=== PATIENT | male | born 1960 | race Caucasian/White ===

== ENCOUNTER 2016-10-19 11:12 | Emergency (ER) | payer OTHER ==
--- NOTE | 2016-10-19 11:21 | Emergency Department Record ---
History of Present Illness - General Chief complaint: Lower Extremity Pain Stated complaint: RIGHT LEG CALF SWELLING/TENDER Time Seen by Provider: 10/19/16 11:13 Source: Patient Mode of Arrival: Ambulatory Limitations: No limitations - History of Present Illness Initial comments: 55 yo male presents with right calf swelling for about one week. He had a right total knee performed by Dr Velasquez about one month ago. No other current symptoms. No fever, chills, redness. His incision has healed without issues. No cough, shortness or breath or chest pain. He takes a full 325mg Aspirin daily. MD Complaint: Extremity pain, Extremity swelling -: Week(s) (1) Location: Right History of Same: No Radiation: Distal Quality: Aching Consistency: Constant Improves with: Elevation Worsens with: Walking, Weight bearing Associated Symptoms: Denies other symptoms - Related Data Home Medications Medication Instructions Recorded Confirmed Last Taken Nabumetone 500 mg PO DAILY tab 09/07/16 10/19/16 Unknown Aspirin 325 mg PO DAILY 10/19/16 10/19/16 Unknown Allergies Allergy/AdvReac Type Severity Reaction Status Date / Time Penicillins Allergy Intermediate RASH Unverified 09/07/16 16:06 Review of Systems Constitutional: Denies: Chills, Fever, Malaise, Weakness Eyes: Denies: Eye discharge ENT: Denies: Congestion, Throat pain Respiratory: Denies: Cough, Dyspnea, Hemoptysis, Stridor, Wheezes Cardiovascular: Denies: Arrhythmia, Chest pain, Palpitations, Syncope Endocrine: Denies: Fatigue Gastrointestinal: Denies: Abdominal pain, Diarrhea, Nausea, Vomiting Genitourinary: Denies: Dysuria, Frequency, Hematuria Musculoskeletal: Reports: As per HPI, Myalgia, Other (calf swelling). Denies: Arthralgia, Back pain, Joint swelling Skin: Denies: Bruising, Change in color, Pruritus Neurological: Denies: Headache Psychiatric: Denies: Anxiety Hematological/Lymphatic: Denies: Blood Clots, Easy bleeding, Easy bruising, Swollen glands Past Medical History - SOCIAL HISTORY Smoking Status: Former smoker - NEURO Hx Neuro Disorders: No - Hx Genitourinary Disorders: No - ENDOCRINE Hx Endocrine Disorders: No - MUSCULOSKELETAL Hx Musculoskeletal Disorders: No - PSYCH Hx Psych Problems: No - HEMATOLOGY/ONCOLOGY Hx Hematology/Oncology Disorders: No Physical Exam - General General Appearance: Alert, Oriented x3, Cooperative, No acute distress Limitations: No limitations - Head Head exam: Normal inspection - Eye Eye exam: Normal appearance. negative: Conjunctival injection - ENT ENT exam: Normal exam Ear exam: Normal external inspection Nasal Exam: Normal inspection Mouth exam: Normal external inspection Teeth exam: Normal inspection - Neck Neck exam: Normal inspection, Full ROM. negative: Tenderness - Respiratory Respiratory exam: Normal lung sounds bilaterally. negative: Respiratory distress - Cardiovascular Cardiovascular Exam: Regular rate, Normal rhythm, Normal heart sounds - Rectal Rectal exam: Deferred - exam: Deferred - Extremities Extremities exam: Calf tenderness, Full ROM, Normal capillary refill, Pedal edema, Other (mild right sided calf swelling, no abnormal warmth or redness). negative: Normal inspection - Back Back exam: Reports: Normal inspection - Neurological Neurological exam: Alert, Normal gait, Oriented X3 - Psychiatric Psychiatric exam: Normal affect, Normal mood - Skin Skin exam: Dry, Intact, Normal color, Warm, Other (Well healed incision). negative: Erythema Course - Reevaluation(s) Reevaluation #1: US of the RLE ordered The patient is otherwise doing well without symptoms 10/19/16 11:20 Reevaluation #2: The prelim US of the RLE was reviewed. NO DVT. 10/19/16 12:07 Reevaluation #3: Final read was negative for DVT 10/19/16 12:17 Disposition Disposition: Discharge Clinical Impression: Leg edema, right Disposition: Home, Self-Care Condition: (1) Good Instructions: Leg Edema (ED) Additional Instructions: follow up with Dr Velasquez and Justa Lou PA return if red, warm, fever or any new concerns Forms: Patient Portal Access Time of Disposition: 12:16
--- NOTE | 2016-10-20 08:32 | US VENOUS DOPPLER REPORT ---
EXAM: ULTRASOUND OF THE DEEP VENOUS SYSTEM OF THE RIGHT LOWER EXTREMITY HISTORY: RIGHT CALF PAIN. TECHNIQUE: Sonographic evaluation of the deep venous system of the right lower extremity was performed with the addition of Doppler, compression and augmentation. FINDINGS: There is normal compression, augmentation, and blood flow identified from the right common femoral vein to the popliteal vein. The posterior tibial , peroneal, and anterior tibial veins are patent. IMPRESSION: NO SONOGRAPHIC EVIDENCE OF A DEEP VEIN THROMBOSIS IN THE RIGHT LOWER EXTREMITY. JOB NUMBER: [id number] MTDD
== END 2016-10-19 12:31 | disposition home or self-care (01) ==
LOC: ER 11:12
DX: R60.0 Localized edema (principal); Z96.651 Presence of right artificial knee joint
CPT/HCPCS: 99283

== ENCOUNTER 2017-03-06 17:00 | Observation (INO) | payer OTHER ==
--- NOTE | 2017-03-06 17:23 | Emergency Department Record ---
History of Present Illness - General Chief Complaint: Cough Stated Complaint: CHEST CONGESTION,LOWER BACK SPASM,DIZZINESS Time Seen by Provider: 03/06/17 17:17 Source: Patient Mode of Arrival: Ambulatory Limitations: No limitations - History of Present Illness Initial Comments: 56 yo male presents with cold like symptoms since Sunday. His symptoms started with sore throat and drainage. The symptoms moved to his lungs. He has productive cough with wheezing. He tried to go back to work today. He noted that he was feeling dizzy with standing. No fever. He does have some muscle aches. No chest pain. No diarrhea or vomiting. MD Complaint: Cough, Other Onset/Timin -: Days(s) Severity scale (1-10): 7 Consistency: Constant Associated Symptoms: Cough - Related Data Previous Rx's Medication Instructions Recorded Insulin Detemir [Levemir Flextouch] 22 unit SQ QHS 30 Days syringe 03/08/17 Metformin HCl 1,000 mg PO BID 30 Days #60 tab 03/08/17 Allergies Allergy/AdvReac Type Severity Reaction Status Date / Time Penicillins Allergy Intermediate RASH Unverified 11/08/16 09:36 Travel Screening - Travel/Exposure Within Last 30 Days Have you traveled within the last 30 days?: No Review of Systems Constitutional: Reports: Malaise. Denies: Chills, Fever Eyes: Denies: Eye discharge ENT: Reports: Throat pain. Denies: Congestion, Dental pain, Epistaxis Respiratory: Reports: Cough, Wheezes. Denies: Dyspnea, Hemoptysis, Stridor Cardiovascular: Denies: Chest pain, Palpitations, Syncope Endocrine: Denies: Fatigue Gastrointestinal: Denies: Abdominal pain, Diarrhea, Nausea, Vomiting Genitourinary: Denies: Dysuria, Frequency Musculoskeletal: Reports: Myalgia. Denies: Arthralgia, Back pain Skin: Denies: Bruising, Change in color, Rash Neurological: Denies: Headache, Numbness, Vertigo, Weakness Psychiatric: Denies: Anxiety Hematological/Lymphatic: Denies: Blood Clots, Easy bleeding, Easy bruising, Swollen glands Past Medical History - SOCIAL HISTORY Smoking Status: Former smoker Alcohol Use: None Drug Use: None - RESPIRATORY Hx Respiratory Disorders: No - CARDIOVASCULAR Hx Cardio Disorders: No - NEURO Hx Neuro Disorders: No - GI Hx GI Disorders: No - Hx Genitourinary Disorders: No - ENDOCRINE Hx Endocrine Disorders: No Hx Diabetes: Yes (type 2) - MUSCULOSKELETAL Hx Musculoskeletal Disorders: No Hx Arthritis: Yes - PSYCH Hx Psych Problems: No - HEMATOLOGY/ONCOLOGY Hx Hematology/Oncology Disorders: No Family Medical History Any Significant Family History?: No Physical Exam - General General Appearance: Alert, Oriented x3, Cooperative, No acute distress Limitations: No limitations - Head Head exam: Normal inspection - Eye Eye exam: Normal appearance, PERRL. negative: Conjunctival injection, Periorbital swelling - ENT ENT exam: Normal exam, Mucous membranes moist, Normal orophraynx, TM's normal bilaterally. negative: Mucous membranes dry Ear exam: Normal external inspection Nasal Exam: Normal inspection. negative: Discharge Mouth exam: Normal external inspection Throat exam: Tonsillar erythema. negative: Tonsillomegaly, Tonsillar exudate, R peritonsillar mass, L peritonsillar mass - Neck Neck exam: Normal inspection, Full ROM. negative: Tenderness - Respiratory Respiratory exam: Rhonchi, Wheezes. negative: Normal lung sounds bilaterally, Accessory muscle use, Decreased breath sounds, Prolonged expiratory, Respiratory distress - Cardiovascular Cardiovascular Exam: Regular rate, Normal rhythm, Normal heart sounds Peripheral Pulses: 2+: Radial (R), Radial (L) - GI/Abdominal GI/Abdominal exam: Soft. negative: Tenderness - Extremities Extremities exam: Normal inspection, Full ROM, Normal capillary refill. negative: Pedal edema, Tenderness - Back Back exam: Reports: Normal inspection, Full ROM. Denies: Muscle spasm, Rash noted, Tenderness - Neurological Neurological exam: Alert, Normal gait, Oriented X3 - Psychiatric Psychiatric exam: Normal affect, Normal mood - Skin Skin exam: Dry, Intact, Normal color, Warm Course Vital Signs 03/06/17 17:06 Temperature 97.3 F L Pulse Rate 105 H Respiratory 18 Rate Blood Pressure 110/67 Pulse Ox 96 - Reevaluation(s) Reevaluation #1: 03/06/17 18:10 The CBC was reviewed No acute changes The CMP was reviewed The patient has acute changes in his renal function with a CR of 2.5 and a BUN of 26 His K was 5.2 03/06/17 18:16 The CXR was reviewed and consistent with COPD 03/06/17 18:29 EKG 18:17 NSR rate of 95, intervals normal,axis is normal, NS inferior lateral changes similar to prior. Medical Decision Making - Lab Data Result diagrams: 03/06/17 17:35 03/08/17 08:43 Disposition Disposition: Admit Clinical Impression: COPD exacerbation, Acute renal insufficiency, Hyperkalemia, Dehydration Disposition: Still a Patient at [facility] Decision to Admit: Admit from ER Decision to Admit Date: 03/06/17 Decision to Admit Time: 18:17 Condition: (1) Good Time of Disposition: 18:17 Quality - Quality Measures Quality Measures: N/A - Blood Pressure Screening Does Patient Have Any of the Following: Active Dx of HTN Blood Pressure Classification: Normal BP Reading Systolic Measurement: 110 Diastolic Measurement: 67 Screening for High Blood Pressure: Patient Exclusion, Hx of HTN [[id number]]
[2017-03-06] MEDS ORDERED: IPRATROPIUM/ALBUTEROL (0.5MG/3MG) NEB INH ONE (17:24)
[2017-03-06] MEDS ORDERED: 0.9 % SODIUM CHLORIDE 1,000 ML BAG IV ONE ×2 (17:24→18:45)
[2017-03-06] MEDS ORDERED: METHYLPREDNISOLONE PF 125MG/VIAL IVP ONE (17:24)
[2017-03-06 17:43] LABS: HEMATOCRIT 45.4 % (42.0-52.0); HEMOGLOBIN 14.9 gm/dl (14.0-18.0); MEAN CORPUSCULAR HEMOGLOBIN 30.8 pg (27-33); MEAN CORPUSCULAR HGB CONC 32.8 g/dl (32-36); MEAN PLATELET VOLUME 11.5 fl (7.4-10.4); PLATELET COUNT 205 K/uL (130-400); RED BLOOD COUNT 4.83 M/uL (4.40-5.70)
[2017-03-06 17:51] LABS: PLATELET ESTIMATE NORMAL (NORMAL)
[2017-03-06 17:59] LABS: INFLUENZA A NEGATIVE (NEGATIVE); INFLUENZA B NEGATIVE (NEGATIVE)
[2017-03-06 18:03] LABS: CREATININE 2.5 mg/dL (0.7-1.2)
[2017-03-06] MEDS ORDERED: ALBUTEROL SULFATE (0.083%) 2.5 MG/3 ML NEB INH PRN (19:46)
[2017-03-06] MEDS ORDERED: CEFTRIAXONE SODIUM 1 GM in 0.9 % SODIUM CHLORIDE 100ML 100 ML IVPB SCH (19:46)
[2017-03-06] MEDS ORDERED: ACETAMINOPHEN 500 MG TABLET PO PRN (19:46)
[2017-03-06] MEDS: 0.9 % SODIUM CHLORIDE 1000ML 1,000 ML IV PRN (20:02)
[2017-03-06] MEDS ORDERED: FLU VAC QS 2017-18 (INPT, 6MO+) 60MCG/0.5ML IM ONE (20:16)
[2017-03-06] MEDS: IPRATROPIUM/ALBUTEROL (0.5MG/3MG) NEB INH SCH (21:56)
[2017-03-06] MEDS ORDERED: METFORMIN 500 MG TABLET PO SCH (22:00)
[2017-03-07 00:19] LABS: URINE APPEARANCE CLEAR; URINE BILIRUBIN NEGATIVE (NEGATIVE); URINE BLOOD NEGATIVE (NEGATIVE); URINE COLOR YELLOW; URINE KETONE NEGATIVE (NEGATIVE); URINE LEUKOCYTE ESTERASE NEGATIVE (NEGATIVE); URINE NITRITE NEGATIVE (NEGATIVE); URINE UROBILINOGEN 0.2 E.U./dL (0.20 - 1.00)
[2017-03-07 00:40] LABS: URINE BACTERIA RARE; URINE RBC 0 - 2 (NONE SEEN); URINE URIC ACID CRYSTALS 1+ /hpf; URINE WBC 0 - 2 (0-2/hpf)
[2017-03-07] MEDS: 0.9 % SODIUM CHLORIDE 1000ML 1,000 ML IV PRN ×2 (05:40→14:00)
[2017-03-07] MEDS: IPRATROPIUM/ALBUTEROL (0.5MG/3MG) NEB INH SCH ×4 (05:53→18:35)
[2017-03-07 07:02] LABS: ALB/GLOB RATIO 1.1 (1.1-1.8); ALBUMIN 3.6 g/dL (4.0-5.0); BILIRUBIN,TOTAL 0.2 mg/dL (0.2-1.0); CREATININE 1.7 mg/dL (0.7-1.2); TOTAL PROTEIN 6.9 g/dL (6.6-8.7)
--- NOTE | 2017-03-07 07:19 | RADIOLOGY REPORT ---
EXAM: CHEST, TWO VIEWS HISTORY: CHEST PAIN. TECHNIQUE: Frontal and lateral views of the chest were obtained. Comparison: None. FINDINGS: The heart size is normal. Underlying hyperinflation/COPD. Calcified granuloma left lung base. The lungs are otherwise clear. No pneumothorax. IMPRESSION: COPD. CALCIFIED GRANULOMA LEFT LUNG BASE. JOB NUMBER: [id number] MTDD
[2017-03-07] MEDS: NOVOLOG FLEXPEN (INSULIN ASPART) 100 UNITS/ML SQ SCH ×3 (08:28→17:36)
--- NOTE | 2017-03-07 09:23 | History & Physical ---
History of Present Illness - Date of Service Date of Service for History & Physical: 03/07/17 - History of Present Illness Admitting Diagnosis: Dehydration, acute kidney injury History of Present Illness: Mr. Quick is a 56 y/o male who presents with complaint of dizziness, and chills which began yesterday. He says that he was at work yesterday and he all of a sudden began feeling sweaty and dizzy. He had to hold on to a colleague for support for a few minutes but denies syncope or fall. The patient also notes a chronic cough but denies any change in sputum color, quantity or smell. He is a former smoker, quitting two years ago, has diabetes mellitus II which he says has not been well controlled due to poor diet and lack of exercise. He follows with Justa in the [facility] and is on Metformin 500mg BID. He has not had is annual influenza vaccine. The patient denies, shortness of breath, headache, fever, nausea or vomiting. On arrival to the ED the patient's labs wer significant for acute kidney injury with Bun/Cr 26/2.5 respectively, K+5.5 and serum glucose 180. He was started on IV antibiotics, respiratory therapy with duonebs and albuterol and admitted for further observation. Travel Screening - Travel/Exposure Within Last 30 Days Have you traveled within the last 30 days?: No - Travel/Exposure Within Last Year Have you traveled outside the [place] in the last year?: No - Additonal Travel Details Have you been exposed to anyone with a communicable illness?: No - Travel Symptoms Symptom Screening: None Review of Systems Constitutional: Reports: Malaise. Denies: Chills, Fever Eyes: Denies: Eye discharge ENT: Reports: Throat pain. Denies: Congestion, Dental pain, Epistaxis Respiratory: Reports: Cough, Wheezes. Denies: Dyspnea, Hemoptysis, Stridor Cardiovascular: Denies: Chest pain, Palpitations, Syncope Endocrine: Denies: Fatigue Gastrointestinal: Denies: Abdominal pain, Diarrhea, Nausea, Vomiting Genitourinary: Denies: Dysuria, Frequency Musculoskeletal: Reports: Myalgia. Denies: Arthralgia, Back pain Skin: Denies: Bruising, Change in color, Rash Neurological: Denies: Headache, Numbness, Vertigo, Weakness Psychiatric: Denies: Anxiety Hematological/Lymphatic: Denies: Blood Clots, Easy bleeding, Easy bruising, Swollen glands Past Medical History - SOCIAL HISTORY Smoking Status: Former smoker Alcohol Use: Occasional Drug Use: None - RESPIRATORY Hx Respiratory Disorders: No - CARDIOVASCULAR Hx Cardio Disorders: No - NEURO Hx Neuro Disorders: No - GI Hx GI Disorders: No - Hx Genitourinary Disorders: No - ENDOCRINE Hx Endocrine Disorders: Yes Hx Diabetes: Yes (type 2) - MUSCULOSKELETAL Hx Musculoskeletal Disorders: No Hx Arthritis: Yes - PSYCH Hx Psych Problems: No - HEMATOLOGY/ONCOLOGY Hx Hematology/Oncology Disorders: No Family Medical History Any Significant Family History?: Yes Hx Heart Disease: Brother/Sister, Grandparents H&P Meds/Allergies - Allergies Allergies: Allergies Allergy/AdvReac Type Severity Reaction Status Date / Time Penicillins Allergy Intermediate RASH Unverified 11/08/16 09:36 - Active Medications Active Medications: Current Medications Acetaminophen (Tylenol 500mg Tab) 500 mg PO Q6H PRN PRN Reason: PAIN/TEMP Albuterol Sulfate () 2.5 mg INH RESP.Q2H PRN PRN Reason: DIFFICULTY IN BREATHING Albuterol/Ipratropium (Duoneb) 3 ml INH RESP.Q4H[facility] Last Admin: 03/07/17 05:53 Dose: 3 ml Aspirin (Aspirin, Regular) 325 mg PO DAILY [facility] Azithromycin (Zithromax) 500 mg PO DAILY [facility] Enoxaparin Sodium (Lovenox) 40 mg SC DAILY [facility] Sodium Chloride () 1,000 mls @ 125 mls/hr IV .Q8H PRN PRN Reason: LARGE VOLUME IV Last Admin: 03/07/17 05:40 Dose: 125 mls/hr Insulin Aspart (Novolog Flexpen) 1 unit SQ TIDINS [facility] PRN Reason: Protocol Last Admin: 03/07/17 08:28 Dose: 10 unit Prednisone (Prednisone 20mg) 40 mg PO DAILYWM [facility] Physical Exam - Vital Signs Vital Signs: Vital Signs - Last 24 Hrs Temp Pulse Pulse Resp BP Pulse Ox 03/07/17 05:56 98 H 18 100 03/07/17 04:00 98.0 F 105 H 20 107/57 94 L 03/06/17 21:56 98 H 16 95 03/06/17 20:23 20 03/06/17 19:46 97.8 F 96 H 20 117/68 94 L 03/06/17 19:31 98.5 F 94 H 20 124/79 96 - General General Appearance: Alert, Oriented x3, Cooperative, No acute distress Limitations: No limitations - Head Head exam: Atraumatic, Normocephalic, Normal inspection - Eye Eye exam: Normal appearance, PERRL. negative: Conjunctival injection, Periorbital swelling - ENT ENT exam: Normal exam, Mucous membranes moist, Normal orophraynx, TM's normal bilaterally. negative: Mucous membranes dry Ear exam: Normal external inspection Nasal Exam: Normal inspection. negative: Discharge Mouth exam: Normal external inspection Throat exam: Tonsillar erythema. negative: Tonsillomegaly, Tonsillar exudate, R peritonsillar mass, L peritonsillar mass - Neck Neck exam: Normal inspection, Full ROM. negative: Tenderness - Respiratory Respiratory exam: Prolonged expiratory (expiratory whezing bilaterally ), Wheezes (bilateral wheezes ). negative: Normal lung sounds bilaterally, Accessory muscle use, Decreased breath sounds, Respiratory distress - Cardiovascular Cardiovascular Exam: Regular rate, Normal rhythm, Normal heart sounds Peripheral Pulses: 2+: Radial (R), Radial (L), Dorsalis Pedis (R), Dorsalis Pedis (L) - GI/Abdominal GI/Abdominal exam: Soft. negative: Tenderness - Rectal Rectal exam: Deferred - exam: Deferred - Extremities Extremities exam: Normal inspection, Full ROM, Normal capillary refill. negative: Calf tenderness, Pedal edema, Tenderness - Back Back exam: Reports: Normal inspection, Full ROM. Denies: Muscle spasm, Rash noted, Tenderness - Neurological Neurological exam: Alert, CN II-XII intact, Normal gait, Oriented X3 - Psychiatric Psychiatric exam: Normal affect, Normal mood - Skin Skin exam: Dry, Intact, Normal color, Warm Results - Labs Result Diagrams: 03/06/17 17:35 03/07/17 06:17 Labs Last 24 Hours: Laboratory Results - last 24 hr 03/06/17 03/07/17 03/07/17 22:15 06:17 06:17 Sodium 132 L Potassium 5.5 H Chloride 98 Carbon Dioxide 19.0 L Anion Gap 15.0 BUN 35 H Creatinine 1.7 H Estimated GFR 45 POC Glucose 191 H Random Glucose 457 H* Hemoglobin A1c 11.20 H Calcium 8.3 L Total Bilirubin 0.20 AST 26 ALT 42 H Alkaline Phosphatase 84 Total Protein 6.9 Albumin 3.6 L Globulin 3.3 Albumin/Globulin Ratio 1.1 VTE H&P Assessment - Risk for VTE Risk for VTE: Yes Risk Level: Moderate Risk Assessment Date: 03/07/17 Risk Assessment Time: 09:45 VTE Orders Placed or Will Be Placed: Yes Plan - Detailed Diagnosis and Plan (1) Acute renal insufficiency Plan: - initial labs: BUN/Cr 26/2.5, K+ 5.2 - due to dehydration, uncontrolled DM - IVF bolus 2 liter Nacl 0.9%, cont fluid challenge @ 125mL/hr. - repeat am labs showed: BUN/Cr 35/1.7, k+ 5.5, recheck labs. - hold Metformin dosing, avoid nephrotoxins. Current Visit: Yes Status: Acute Base Code: N28.9 - DISORDER OF KIDNEY AND URETER, UNSPECIFIED (2) Hyperkalemia Plan: - K 5.2 --> 5.5 - as a result of SILVIA - EKG- NSR, currently on Albuterol treatment, Insulin 10 units given, accucheck. - replete fluids and trend labs. Current Visit: Yes Status: Acute Base Code: E87.5 - HYPERKALEMIA (3) Diabetes mellitus type II, uncontrolled Plan: - CBG 180 ---> am labs 457, Hba1c 11.0 - d/c Metfromin,start Novolog moderate dose sliding scale. Give 10 units this am since patient insulin naive. - accuchecks QID, diabetic diet. Influenza vaccine before d/c - outpatient follow up regarding, Opthalmology and diabetic checks. Current Visit: Yes Status: Acute Base Code: E11.65 - TYPE 2 DIABETES MELLITUS WITH HYPERGLYCEMIA (4) COPD (chronic obstructive pulmonary disease) with chronic bronchitis Plan: - likely COPD w/ previous hx of smoking and chronic cough. Quit 2 years ago. No PFTs, - cont duonebs Q4H, Albuterol Q2H, d/c IV abx, change to Zithromax 500mg QD. - influenza A/B rapid, annual flu shot on d/c. Current Visit: Yes Status: Acute Base Code: J44.9 - CHRONIC OBSTRUCTIVE PULMONARY DISEASE, UNSPECIFIED (5) DVT prophylaxis Plan: - VTE prophylaxis: Lovenox 40mg QD - patient to ambulate as tolerated. Current Visit: Yes Status: Acute Base Code: [id number] - (6) Full code status Plan: FULL CODE Current Visit: Yes Status: Acute Base Code: Z78.9 - OTHER SPECIFIED HEALTH STATUS - Disposition Repeat labs pending with plans for D/C if improved.
[2017-03-07] MEDS ORDERED: PREDNISONE 20 MG TAB PO SCH (09:45)
[2017-03-07] MEDS ORDERED: METHYLPREDNISOLONE PF 125MG/VIAL IVP SCH (10:00)
[2017-03-07] MEDS: ASPIRIN 325 MG TABLET PO SCH (10:23)
[2017-03-07] MEDS: AZITHROMYCIN 500 MG TABLET PO SCH (10:24)
--- NOTE | 2017-03-07 10:56 | Discharge Summary ---
Providers Discharge Summary Date: 03/08/17 Date of admission: 03/06/17 19:25 Attending physician: Deonte Murrieta Primary care physician: ROMARIO GOOD Physical Exam - Vital Signs Vital Signs: Vital Signs - Last 24 Hrs Temp Pulse Pulse Resp BP Pulse Ox 03/07/17 09:59 100 H 16 93 L 03/07/17 05:56 98 H 18 100 03/07/17 04:00 98.0 F 105 H 20 107/57 94 L 03/06/17 21:56 98 H 16 95 03/06/17 20:23 20 03/06/17 19:46 97.8 F 96 H 20 117/68 94 L 03/06/17 19:31 98.5 F 94 H 20 124/79 96 - General General Appearance: Alert, Oriented x3, Cooperative, No acute distress Limitations: No limitations - Head Head exam: Atraumatic, Normocephalic, Normal inspection - Eye Eye exam: Normal appearance, PERRL. negative: Conjunctival injection, Periorbital swelling - ENT ENT exam: Normal exam, Mucous membranes moist, Normal orophraynx, TM's normal bilaterally. negative: Mucous membranes dry Ear exam: Normal external inspection Nasal Exam: Normal inspection. negative: Discharge Mouth exam: Normal external inspection Throat exam: Tonsillar erythema. negative: Tonsillomegaly, Tonsillar exudate, R peritonsillar mass, L peritonsillar mass - Neck Neck exam: Normal inspection, Full ROM. negative: Tenderness - Respiratory Respiratory exam: Prolonged expiratory (expiratory whezing bilaterally ), Wheezes (bilateral wheezes ). negative: Normal lung sounds bilaterally, Accessory muscle use, Decreased breath sounds, Respiratory distress - Cardiovascular Cardiovascular Exam: Regular rate, Normal rhythm, Normal heart sounds Peripheral Pulses: 2+: Radial (R), Radial (L), Dorsalis Pedis (R), Dorsalis Pedis (L) - GI/Abdominal GI/Abdominal exam: Soft. negative: Tenderness - Rectal Rectal exam: Deferred - exam: Deferred - Extremities Extremities exam: Normal inspection, Full ROM, Normal capillary refill. negative: Calf tenderness, Pedal edema, Tenderness - Back Back exam: Reports: Normal inspection, Full ROM. Denies: Muscle spasm, Rash noted, Tenderness - Neurological Neurological exam: Alert, CN II-XII intact, Normal gait, Oriented X3 - Psychiatric Psychiatric exam: Normal affect, Normal mood - Skin Skin exam: Dry, Intact, Normal color, Warm Hospitalization - Hospitalization Admission Diagnosis: Dehydration, acute kidney injury - Problem List/Discharge Diagnosis (1) Acute renal insufficiency Plan: - initial labs: BUN/Cr 26/2.5, K+ 5.2, repeat labs pending. - d/c IVF, hold Metformin until improved kidney function. Current Visit: Yes Status: Acute Base Code: N28.9 - DISORDER OF KIDNEY AND URETER, UNSPECIFIED (2) Hyperkalemia Plan: - K 5.2 --> 5.5 --> pending am labs. - EKG- NSR, currently on Albuterol treatment, Insulin 10 units given, accucheck. Current Visit: Yes Status: Acute Base Code: E87.5 - HYPERKALEMIA (3) Diabetes mellitus type II, uncontrolled Plan: - CBG 180 ---> am labs 457 -- > 215 POC glucose, Hba1c 11.0 - resume Metformin @ 1000 BID, Levemir 20 units QHS , tob continued at D/C - accuchecks QID, diabetic diet. Influenza vaccine before d/c - outpatient follow up regarding, Opthalmology and diabetic checks. - ordered outpatient labs prior to visit in 2 weeks. Current Visit: Yes Status: Acute Base Code: E11.65 - TYPE 2 DIABETES MELLITUS WITH HYPERGLYCEMIA (4) COPD (chronic obstructive pulmonary disease) with chronic bronchitis Plan: - likely COPD w/ previous hx of smoking and chronic cough. Quit 2 years ago. No PFTs, - cont duonebs Q4H, Albuterol Q2H, d/c abx. - influenza A/B rapid negative, annual flu shot on d/c. Current Visit: Yes Status: Acute Base Code: J44.9 - CHRONIC OBSTRUCTIVE PULMONARY DISEASE, UNSPECIFIED (5) DVT prophylaxis Plan: - VTE prophylaxis: Lovenox 40mg QD - patient to ambulate as tolerated. Current Visit: Yes Status: Acute Base Code: [id number] - (6) Full code status Plan: FULL CODE Current Visit: Yes Status: Acute Base Code: Z78.9 - OTHER SPECIFIED HEALTH STATUS - Disposition D/C home this morning. - Hospitalization Course Hospital Course: Mr. Quick is a 56 y/o male who presents with complaint of dizziness, and chills which began yesterday. He says that he was at work yesterday and he all of a sudden began feeling sweaty and dizzy. He had to hold on to a colleague for support for a few minutes but denies syncope or fall. The patient also notes a chronic cough but denies any change in sputum color, quantity or smell. He is a former smoker, quitting two years ago, has diabetes mellitus II which he says has not been well controlled due to poor diet and lack of exercise. He follows with [facility] in the [facility] and is on Metformin 500mg BID. He has not had is annual influenza vaccine. The patient denies, shortness of breath, headache, fever, nausea or vomiting. On arrival to the ED the patient's labs wer significant for acute kidney injury with Bun/Cr 26/2.5 respectively, K+5.5 and serum glucose 180. He was started on IV antibiotics, respiratory therapy with duonebs and albuterol and admitted for further observation. Day #2: patient's Cr improved to 1.7 ---> 1.3 after 2 liters bolus and continuous IVF @ 125mL/hr. However the patient's CBG showed consistent readings > 300. He was started on moderate dose sliding scale insulin TIDAC with minimal improvement. Levemir 20 units was given QHS and CBG-POC improved to 215. Day #3: patient instructed on the need for better diet/exercise and CBG checks. He was given a glucometer and shown how to use by golf course keeper. He has seen dietary service as an outpatient in the past and we will put a referral for resumption of care within 2 weeks. The patient is to start Levemir 25 units subq , QHS, and Metformin 1000mg BID. Outpatient follow up in 2 weeks. Abnormal Labs: Abnormal Lab Results 03/06/17 03/07/17 03/07/17 Range/Units 22:15 06:17 06:17 Sodium 132 L (136-145) mmol/L Potassium 5.5 H (3.4-4.5) mmol/L Carbon Dioxide 19.0 L (22-29) mmol/L BUN 35 H (6-20) mg/dL Creatinine 1.7 H (0.7-1.2) mg/dL POC Glucose 191 H (70-110) mg/dL Random Glucose 457 H* (74-109) mg/dL Hemoglobin A1c 11.20 H (4.0-6.00) % Calcium 8.3 L (8.6-10.0) mg/dL ALT 42 H (<41) U/L Albumin 3.6 L (4.0-5.0) g/dL Condition at Discharge: (1) Good Discharge Medications - Discharge Medications Prescriptions: Insulin Detemir [Levemir Flextouch] 22 unit SQ QHS 30 Days syringe Metformin HCl 1,000 mg PO BID 30 Days #60 tab Home Medications: Ambulatory Orders Nabumetone 500 mg PO DAILY tab 09/07/16 [Last Taken Unknown] Aspirin 325 mg PO DAILY 10/19/16 [Last Taken Unknown] Insulin Detemir [Levemir Flextouch] 22 unit SQ QHS 30 Days syringe 03/08/17 [ Last Taken Unknown] Metformin HCl 1,000 mg PO BID 30 Days #60 tab 03/08/17 [Last Taken Unknown] Discharge Plan - Discharge Instructions Activity at Discharge: Resume Usual Activities As Tolerated Diet at Discharge: Diabetic Diet Quality Measures - Quality Measures Quality Measures: Documentation of Current Medications in Medical Record, Screening for High Blood Pressure and F/U Documented - Current Medications Quality Measure: Measure #130: Documentation of Current Medications Documentation of Current Medications: <Current Medications Documented/Reviewed> [[id number]] - Blood Pressure Screening Quality Measure: Screening for High Blood Pressure and Follow-Up Documented Does Patient Have Any of the Following: Active Dx of HTN Blood Pressure Classification: Normal BP Reading Systolic Measurement: 110 Diastolic Measurement: 67 Screening for High Blood Pressure: Patient Exclusion, Hx of HTN [G9744] - Elder Abuse Suspicion Index EASI Reference Information: Trung ALMONTE, Home C, David D, Nikolas Minaya.Development and validation of a tool to assist physicians identification of elder abuse: The Elder Abuse Suspicion Index (EASI ). Journal of Elder Abuse and Neglect, 2008; 20 (3): 276-300.
[2017-03-07] MEDS: ENOXAPARIN 40 MG/0.4 ML SYR SC SCH (12:25)
[2017-03-07 16:27] LABS: BLOOD UREA NITROGEN 33 mg/dL (6-20); CREATININE 1.3 mg/dL (0.7-1.2); EST GLOMERULAR FILTRATION RATE > 60 mL/min
[2017-03-07 16:38] LABS: GLUCOSE,RANDOM 483 mg/dL (74-109)
[2017-03-07] MEDS: LEVEMIR FLEXTOUCH 100 UNIT/ML INSULIN PEN SQ SCH ×2 (17:02→21:34)
[2017-03-08] MEDS: 0.9 % SODIUM CHLORIDE 1000ML 1,000 ML IV PRN ×2 (07:53)
[2017-03-08] MEDS: NOVOLOG FLEXPEN (INSULIN ASPART) 100 UNITS/ML SQ SCH (08:04)
[2017-03-08 09:00] LABS: BLOOD UREA NITROGEN 24 mg/dL (6-20); CREATININE 1.1 mg/dL (0.7-1.2); EST GLOMERULAR FILTRATION RATE > 60 mL/min; GLUCOSE,RANDOM 247 mg/dL (74-109)
[2017-03-08] MEDS: AZITHROMYCIN 500 MG TABLET PO SCH (09:10)
[2017-03-08] MEDS: ASPIRIN 325 MG TABLET PO SCH (09:10)
[2017-03-08] MEDS: ENOXAPARIN 40 MG/0.4 ML SYR SC SCH (09:12)
[2017-03-08] MEDS: IPRATROPIUM/ALBUTEROL (0.5MG/3MG) NEB INH SCH (09:30)
== END 2017-03-08 10:40 | disposition home or self-care (01) ==
LOC: ER 17:00 → MEDSURG 19:25
PROVIDERS: ADMIT Internal Medicine; ATTEND Internal Medicine
DX: N28.9 Disorder of kidney and ureter, unspecified (principal); Z23 Encounter for immunization; E87.5 Hyperkalemia; E11.65 Type 2 diabetes mellitus with hyperglycemia; Z79.4 Long term (current) use of insulin; Z79.84 Long term (current) use of oral hypoglycemic drugs; I10 Essential (primary) hypertension; J44.9 Chronic obstructive pulmonary disease, unspecified; Z87.891 Personal history of nicotine dependence; J42 Unspecified chronic bronchitis; E86.0 Dehydration
CPT/HCPCS: 99285 ×2; 96374; 96361; 80048 ×3; 80053; 36416 ×3; 81001; 83036; 82948 ×3; 87400; 84484; 85027; 71020; 94640 ×3; 90686; G0378 ×3; J7512; J1815 ×3; 99217; 99220; J2930; J7030